=== PATIENT | male | born 1970 | race Caucasian/White ===

== ENCOUNTER 2018-05-23 23:41 | Emergency (ER) | payer SELFPAY ==
[~2018-05-23] VITALS: Ht 172.7 cm; Wt 89.5 kg
[2018-05-24] MEDS ORDERED: FLUORESCEIN SODIUM 1MG/STRIP OP ONE (03:15)
[2018-05-24] MEDS ORDERED: TETRACAINE 0.5% OPHTH DROPS 4ML OP ONE (03:15)
[2018-05-24] MEDS ORDERED: DIPHENHYDRAMINE 25MG CAPSULE PO ONE (04:00)
[2018-05-24 04:04] VITALS: BP 115/73
== END 2018-05-24 04:07 | disposition home or self-care (01) ==
LOC: ER 23:41
DX: H10.213 Acute toxic conjunctivitis, bilateral (principal); W26.1XXA Contact with sword or dagger, initial encounter; Y93.89 Activity, other specified; Y92.89 Other specified places as the place of occurrence of the external cause; Y99.8 Other external cause status
CPT/HCPCS: 99284; Q0163

== ENCOUNTER 2021-11-02 14:53 | Emergency (ER) | payer MEDICAID ==
[~2021-11-02] VITALS: Ht 170.2 cm; Wt 81.0 kg
[2021-11-02 15:12] VITALS: BP 130/87
[2021-11-02] MEDS ORDERED: LIDOCAINE HCL/EPINEPHRINE 1%-EPI 1:100,000 10 ML VIAL IJ NR (16:45)
[2021-11-02] MEDS ORDERED: LIDOCAINE HCL/EPINEPHRINE 1%-EPI 1:100,000 20 ML VIAL INFIL ONE (16:45)
[2021-11-02] MEDS ORDERED: BACITRACIN ZINC OINT UDPKT TOP ONE (18:15)
[2021-11-02] MEDS ORDERED: BO1 TP (18:18)
== END 2021-11-02 19:08 | disposition home or self-care (01) ==
LOC: ER 15:08
DX: S51.012A Laceration without foreign body of left elbow, initial encounter (principal); X58.XXXA Exposure to other specified factors, initial encounter; Y93.89 Activity, other specified; Y92.89 Other specified places as the place of occurrence of the external cause; Y99.8 Other external cause status
CPT/HCPCS: 12001; 99282; J3490